=== PATIENT | male | born 1940 | race Caucasian/White ===

== ENCOUNTER 2016-08-25 06:38 | Emergency (ER) | payer OTHER ==
[~2016-08-25] VITALS: Ht 185.4 cm; Wt 118.0 kg
[2016-08-25 06:48] VITALS: BP 181/86; PULSE 77; RESP 18; TEMP 97.8; O2SAT 96
[2016-08-25] MEDS ORDERED: METF1000 PO (06:52)
[2016-08-25] MEDS ORDERED: PLAV75TA29 PO (06:52)
[2016-08-25] MEDS ORDERED: AMLO2.5T PO (06:52)
[2016-08-25] MEDS ORDERED: SODIUM CHLORIDE 0.9% FLUSH 10 ML FLUSH IVF PRN (07:00)
[2016-08-25 07:06] VITALS: BP 181/79; PULSE 71; RESP 24; O2SAT 95
[2016-08-25 07:18] LABS: AUTOMATED NEUTROPHIL # 5.6 TH/MM3 (1.8-7.7); BASOPHIL % 0.3 % (0.0-2.0); EOSINOPHIL # 0.3 TH/MM3 (0-0.4); EOSINOPHIL % 3.2 % (0.0-4.0); HEMATOCRIT 34.7 % (39.0-51.0); HEMO FLAGS DIFF FINAL; LYMPH % 25.6 % (9.0-44.0); LYMPHOCYTE # 2.1 TH/MM3 (1.0-4.8); MEAN CELL VOLUME 86.6 FL (80.0-100.0); MEAN CORPUSCULAR HEMOGLOBIN 28.9 PG (27.0-34.0); MEAN CORPUSCULAR HGB CONC 33.3 % (32.0-36.0); MONO % 3.8 % (0.0-8.0); NEUT % 67.1 % (16.0-70.0); PLATELET COUNT 259 TH/MM3 (150-450); RED BLOOD COUNT 4.01 MIL/MM3 (4.50-5.90); RED CELL DISTRIBUTION WIDTH 13.9 % (11.6-17.2); WHITE BLOOD COUNT 8.4 TH/MM3 (4.0-11.0)
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
[2016-08-25 07:25] LABS: I-STAT POTASSIUM 4.2 MMOL/L (3.5-4.9)
[2016-08-25 07:36] LABS: APTT (PATIENT) 23.6 SEC (24.3-30.1); INTERNATIONAL NORMALIZED RATIO 0.9 RATIO; PROTHROMBIN TIME - PATIENT 10.1 SEC (9.8-11.6)
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
[2016-08-25] MEDS ORDERED: IOHEXOL 350 MG/ML 10 ML VIAL (for RAD DIAG) IV ONE (09:06)
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
[2016-08-26] MEDS ORDERED: ACET500T3 PO (18:33)
[2016-08-26] MEDS ORDERED: ROBA500T PO (18:33)
== END 2016-08-25 10:27 | disposition home or self-care (01) ==
LOC: NEPC 06:38
DX: M25.551 Pain in right hip (principal); R51 Headache; N28.1 Cyst of kidney, acquired; N28.9 Disorder of kidney and ureter, unspecified; V03.90XA Pedestrian on foot injured in collision with car, pick-up truck or van, unspecified whether traffic or nontraffic accident, initial encounter; Y93.89 Activity, other specified; Y92.410 Unspecified street and highway as the place of occurrence of the external cause; Y99.9 Unspecified external cause status; E11.9 Type 2 diabetes mellitus without complications; Z86.73 Personal history of transient ischemic attack (TIA), and cerebral infarction without residual deficits
CPT/HCPCS: 70450; 71010; 71260; 72125; 74177; 82435; 82565; 82947; 84132; 84295; 84520; 85025; 85610; 85730; 99284; Q9967

== ENCOUNTER 2016-08-26 14:43 | Emergency (ER) | payer OTHER ==
[~2016-08-26] VITALS: Ht 182.9 cm; Wt 127.5 kg
[~2016-08-26 14:43] MED LIST: AMLO2.5T PO; METF1000 PO; PLAV75TA29 PO
[2016-08-26 14:45] VITALS: BP 158/65; PULSE 85; RESP 20; TEMP 97.5; O2SAT 97
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
[2016-08-26] MEDS ORDERED: ROBA500T PO (18:33)
[2016-08-26] MEDS ORDERED: ACET500T3 PO (18:33)
== END 2016-08-26 18:41 | disposition home or self-care (01) ==
LOC: NEPK 14:43
DX: S50.01XA Contusion of right elbow, initial encounter (principal); S39.012A Strain of muscle, fascia and tendon of lower back, initial encounter; E11.9 Type 2 diabetes mellitus without complications; V03.19XA Pedestrian with other conveyance injured in collision with car, pick-up truck or van in traffic accident, initial encounter; Y93.01 Activity, walking, marching and hiking
CPT/HCPCS: 72131; 73080